=== PATIENT | female | born 1985 | race Caucasian/White ===

== ENCOUNTER 2022-10-24 19:08 | Emergency (ER) | payer OTHER ==
[~2022-10-24] VITALS: Ht 170.2 cm; Wt 74.8 kg
[2022-10-24] MEDS ORDERED: CEPHALEXIN500 MG PO (20:19)
== END 2022-10-24 21:00 | disposition home or self-care (01) ==
LOC: ED 19:08
DX: S91.201A Unspecified open wound of right great toe with damage to nail, initial encounter (principal); W20.8XXA Other cause of strike by thrown, projected or falling object, initial encounter; Y92.009 Unspecified place in unspecified non-institutional (private) residence as the place of occurrence of the external cause; Z23 Encounter for immunization
CPT/HCPCS: 90471; 90715; 99283; A9270

== ENCOUNTER 2024-08-12 16:52 | Emergency (ER) | payer BC ==
[~2024-08-12] VITALS: Ht 170.2 cm; Wt 84.0 kg
[~2024-08-12 16:52] MED LIST: CEPHALEXIN500 MG PO
[2024-08-12 17:06] LABS: BASOPHILS 0.9 % (0-2); EOSINOPHILS 1.3 % (0-6); HEMATOCRIT 41.5 % (35.0-50.0); HEMOGLOBIN 13.9 g/dL (12.0-18.0); LYMPHOCYTES 19.8 % (24-44); MCH 30.9 (27-36); MCHC 33.6 g/dl (30-36); MCV 92.2 fl (81-99); PLATELET COUNT 319 K/uL (140-440); RDW 13.1 (10.5-15.0)
[2024-08-12 17:28] LABS: ALBUMIN 4.1 g/dL (3.4-5.0); ALBUMIN/GLOBULIN RATIO 1.11 (1.1-2.4); ALKALINE PHOSPHATASE 55 U/L (46-116); ALT (SGPT) 19 U/L (14-59); ANION GAP 13.2 (7-21); AST (SGOT) 15 U/L (15-37); BILIRUBIN, TOTAL 0.4 ng/dL (0.2-1.0); BUN/CREATININE RATIO 13.58 (6.0-28.6); CALCIUM 9.1 mg/dL (8.5-10.1); CARBON DIOXIDE 29 mmol/L (21-32); CHLORIDE 101 mmol/L (98-107); CREATININE, SERUM 0.81 mg/dL (0.55-1.02); GLOMERULAR FILTRATION RATE,EST 94 mL/min (>60); POTASSIUM 4.2 mmol/L (3.5-5.1); PROTEIN, TOTAL 7.8 g/dL (6.4-8.2); UREA NITROGEN 11 mg/dL (7-18)
[2024-08-12 19:05] VITALS: BP 132/83
--- NOTE | 2024-08-12 19:43 | EKG ---
[facility] [address] [facility] [place] [address] Signed Normal sinus rhythm [facility]Hts[facility] Abnormal ECG No previous ECGs available Confirmed by Latanya Gamez MD ([id number]) on 08/12/2024 7:43:27 PM Electronically Signed By: LATANYA GAMEZ MD 08/12/241942 PATIENT NAME: SERENITY DIALLO Electrocardiogram DATE OF : 81 PHYSICIAN: LATANYA GAMEZ MD REPORT #: [id number] REPORT IS CONFIDENTIAL AND NOT TO BE RELEASED WITHOUT AUTHORIZATION
== END 2024-08-12 19:05 | disposition home or self-care (01) ==
LOC: ED 16:52
PROVIDERS: Emergency Medicine
DX: I45.6 Pre-excitation syndrome (principal); G43.909 Migraine, unspecified, not intractable, without status migrainosus
CPT/HCPCS: 36415; 71045; 80053; 84443; 84484; 85025; 93005; 93010; 99284-25